=== PATIENT | male | born 1995 | race Hispanic/Latino ===

== ENCOUNTER 2022-07-15 04:54 | Emergency (ER) | payer SELFPAY ==
[2022-07-15] MEDS ORDERED: Ativan 1 MG PO ONE (05:02)
[2022-07-15] MEDS ORDERED: Ativan 1 MG ONE (05:04)
--- NOTE | 2022-07-15 05:14 | ERPHSYRPT ---
- History of Present Illness Time Seen by Provider: 07/15/22 04:57 Source: patient Exam Limitations: no limitations Patient Subjective Stated Complaint: pt states "I think I am having an anxiety attack." Triage Nursing Assessment: pt ambulatory to bed by self, pt alert and oriented x3, pt was driving home to [place] with a friend and pt states "I suddenly just felt like my throat was closing up and I feel shaky." pt in no distress, lung sounds clear and equal bilateral, tongue normal in size, pink and moist, pt's hands and legs are shaky and obviously anxious, pt denies pain Physician History: Patient here with panic attack. Patient states that just prior to arrival they were driving to [place]. Of note it is 5 AM. They are driving through the night. Patient works at [employer]. Patient states that he felt jittery, felt his throat closing. No other allergic reaction type symptoms. No wheezing, cutaneous symptoms, urticaria, other signs of infection. EKG was obtained at bedside. Sinus rhythm, no ischemic changes. Timing/Duration: today Severity: mild Modifying Factors: Improves With: other Allergies/Adverse Reactions: No Known Drug Allergies Allergy (Verified 07/15/22 04:56) Home Medications: No Reportable Medications [No Reported Medications] 07/15/22 [History] Hx Tetanus, Diphtheria Vaccination/Date Given: Yes Hx Influenza Vaccination/Date Given: No Hx Pneumococcal Vaccination/Date Given: No Immunizations Up to Date: Yes Travel Risk - International Travel Have you traveled outside of the country in past 3 weeks: No - Coronavirus Screening Are you exhibiting any of the following symptoms?: No Close contact with a COVID-19 positive Pt in past 14-21 Days: No - Vaccine Status Have you recieved a Covid-19 vaccination: No - Review of Systems Constitutional: No Fever, No Chills Eyes: No Symptoms Ears, Nose, & Throat: No Symptoms Respiratory: No Cough, No Dyspnea Cardiac: No Chest Pain, No Edema, No Syncope Abdominal/Gastrointestinal: No Abdominal Pain, No Nausea, No Vomiting, No Diarrhea Genitourinary Symptoms: No Dysuria Musculoskeletal: No Back Pain, No Neck Pain Skin: No Rash Neurological: No Dizziness, No Focal Weakness, No Sensory Changes Psychological: No Symptoms Endocrine: No Symptoms All Other Systems: Reviewed and Negative - Past Medical History Pertinent Past Medical History: Yes Neurological History: No Pertinent History ENT History: No Pertinent History Cardiac History: No Pertinent History Respiratory History: Asthma Endocrine Medical History: No Pertinent History Musculoskeletal History: No Pertinent History GI Medical History: No Pertinent History History: No Pertinent History Psycho-Social History: No Pertinent History Male Reproductive Disorders: No Pertinent History - Past Surgical History Past Surgical History: No Neuro Surgical History: No Pertinent History Cardiac: No Pertinent History Respiratory: No Pertinent History Gastrointestinal: No Pertinent History Genitourinary: No Pertinent History Musculoskeletal: No Pertinent History Male Surgical History: No Pertinent History - Social History Smoking Status: Never smoker Exposure to second hand smoke: No Drug Use: none Patient Lives Alone: No - Nursing Vital Signs Nursing Vital Signs: Initial Vital Signs Temperature 98.5 F 07/15/22 04:56 Pulse Rate 91 H 07/15/22 04:56 Respiratory Rate 18 07/15/22 04:56 Blood Pressure 134/71 07/15/22 04:56 O2 Sat by Pulse Oximetry 100 07/15/22 04:56 Pain Scale Pain Intensity 0 - Physical Exam General Appearance: no apparent distress, alert Eye Exam: PERRL/EOMI, eyes nml inspection Ears, Nose, Throat Exam: normal ENT inspection, TMs normal, pharynx normal, moist mucous membranes Neck Exam: normal inspection, non-tender, supple, full range of motion Respiratory Exam: normal breath sounds, lungs clear, No respiratory distress Cardiovascular Exam: regular rate/rhythm, normal heart sounds, normal peripheral pulses Gastrointestinal/Abdomen Exam: soft, normal bowel sounds, No tenderness, No mass Back Exam: normal inspection, normal range of motion, No CVA tenderness, No vertebral tenderness Extremity Exam: normal inspection, normal range of motion, pelvis stable Neurologic Exam: alert, oriented x 3, cooperative, normal mood/affect, nml cerebellar function, nml station & gait, sensation nml, No motor deficits Skin Exam: normal color, warm, dry, No rash Lymphatic Exam: No adenopathy SpO2: 100 Comments: 07/15/22 05:12 Patient has no oral airway swelling, no signs of infection, no signs of allergic reaction on physical exam, no wheezing. - Course Nursing assessment & vital signs reviewed: Yes EKG Interpreted by Me: Sinus Rhythm (Sinus rhythm without ischemic changes) Ordered Tests: Medication Summary Discontinued Medications Generic Name Dose Route Start Last Admin Trade Name Freq PRN Reason Stop Dose Admin Lorazepam 1 mg 07/15/22 05:02 07/15/22 05:05 Lorazepam 1 Mg Tablet PO 07/15/22 05:03 1 mg STAT ONE Administration Lorazepam Confirm 07/15/22 05:04 Lorazepam 1 Mg Tablet Administered 07/15/22 05:05 Dose 1 mg .ROUTE .STK-MED ONE - Progress Progress: improved Progress Note: 07/15/22 05:12 Differential diagnosis includes arrhythmia, allergic reaction, panic attack, anxiety. No physical features to demonstrate an allergic reaction. No actual throat swelling seen. No wheezing. EKG shows no ST changes. Patient given 1 oral Ativan. He did feel much improved after this. Patient observed in the emergency room. No further symptoms. Counseled pt/family regarding: diagnosis, need for follow-up - Departure Departure Disposition: Home Clinical Impression: Anxiety Condition: Stable Critical Care Time: No Instructions: Anxiety, Adult (DC)
[2022-07-15 05:26] VITALS: BP 133/76; PULSE 74; O2SAT 98
== END 2022-07-15 05:31 | disposition home or self-care (01) ==
LOC: ED 04:54
DX: F41.9 Anxiety disorder, unspecified (principal); Z28.310 Unvaccinated for COVID-19
CPT/HCPCS: 99281; A9270-GY